=== PATIENT | female | born 1990 | race Hispanic/Latino ===

== ENCOUNTER 2017-11-03 20:03 | Emergency (ER) | payer SELFPAY ==
[2017-11-03] MEDS ORDERED: CEFTRIAXONE SODIUM 500 MG VIAL ONE (21:00)
[2017-11-03] MEDS ORDERED: LIDOCAINE HCL-MPF 1% 2ML VIAL ONE (21:01)
[2017-11-03] MEDS ORDERED: ONDANSETRON ODT 4 MG TAB ONE (21:01)
[2017-11-03] MEDS ORDERED: AZITHROMYCIN 250 MG TABLET PO ONE (21:01)
== END 2017-11-03 21:25 | disposition home or self-care (01) ==
LOC: EDH 20:03
DX: Z20.2 Contact with and (suspected) exposure to infections with a predominantly sexual mode of transmission (principal); Z98.890 Other specified postprocedural states
CPT/HCPCS: 81025; 87486; 87797; 96372; 99284; J0696; J3490